=== PATIENT | female | born 1995 | race Caucasian/White ===

== ENCOUNTER 2019-03-25 15:55 | Emergency (ER) | payer MEDICAID ==
[~2019-03-25] VITALS: Ht 172.7 cm; Wt 153.3 kg
[2019-03-25 16:19] VITALS: BP 134/77; Ht 172.7 cm; Wt 153.3 kg
== END 2019-03-25 18:25 | disposition left against medical advice (07) ==
LOC: ED 15:55
DX: Z53.21 Procedure and treatment not carried out due to patient leaving prior to being seen by health care provider (principal)